=== PATIENT | female | born 2000 | race Caucasian/White ===

== ENCOUNTER 2022-01-01 14:44 | Emergency (ER) | payer OTHER ==
[~2022-01-01] VITALS: Ht 160 cm; Wt 81.2 kg
[~2022-01-01 14:44] MED LIST: ACETAMINOPHEN500 MG PO; AUGMENTIN 875-1 EACH PO; CITALOPRAM HBR10 MG PO; HYDROCODON-ACE1 EA10 PO; IBUPROFEN600 MG PO; MINIPRESS1 MG PO; NORCO 5-325 TA1 EACH PO
--- OUTSIDE RECORDS SUMMARY | 2022-01-01 14:46 | XMS ---
PreManage Notification: DUKE RENEE Security [employer] Events No recent Security Events currently on file CRITERIA MET - [facility] - 2 Visits in 30 Days CARE PROVIDERS ROSENDA YBARRA Physician Bowling Alley Operator: Medical Current PHONE: Unknown Reyna has no Care Guidelines for this patient. EAvelina VISIT COUNT (12 MO.) [address] TOTAL 6 NOTE: Visits indicate total known visits. ED/UCC VISIT TRACKING (12 MO.) 01/01/2022 14:45 [facility] TYPE: Emergency COMPLAINT: - ABDOMINAL PAIN, VAGINAL BLEEDING 12/18/2021 05:21 [facility] TYPE: Emergency DIAGNOSES: - abd pain vomiting - Left upper quadrant pain 12/17/2021 05:40 [facility] TYPE: Emergency DIAGNOSES: - Urinary tract infection, site not specified - ABD PAIN 04/01/2021 13:44 [facility] TYPE: Emergency DIAGNOSES: - Other chronic pain - ABD PAIN - Unspecified abdominal pain 03/29/2021 20:01 [facility] TYPE: Emergency DIAGNOSES: - Constipation, unspecified - ABD PAIN 01/08/2021 22:09 [employer] [facility] TYPE: Emergency DIAGNOSES: - Cystitis, unspecified without hematuria - ABD PAIN HEADACHE INPATIENT VISIT TRACKING (12 MO.) No inpatient visits to display in this time frame [email or web address]
== END 2022-01-01 16:23 | disposition left against medical advice (07) ==
LOC: ED 14:44
DX: Z53.21 Procedure and treatment not carried out due to patient leaving prior to being seen by health care provider (principal)
CPT/HCPCS: 81001; 84703

== ENCOUNTER 2025-02-23 16:54 | Emergency (ER) | payer OTHER ==
[~2025-02-23] VITALS: Ht 160 cm; Wt 65.9 kg
[2025-02-23] MEDS ORDERED: NITROGLYCERIN 0.4 MG SUBL SL PRN (17:15)
[2025-02-23] MEDS ORDERED: ASPIRIN 81 MG CHEW PO ONE (17:15)
[2025-02-23 17:20] LABS: BASOPHILS 0.5 % (0-2); EOSINOPHILS 0.8 % (0-6); HEMATOCRIT 41.9 % (35.0-50.0); HEMOGLOBIN 14.5 g/dL (12.0-18.0); LYMPHOCYTES 21.8 % (24-44); MCH 31.5 (27-36); MCHC 34.5 g/dl (30-36); MCV 91.4 fl (81-99); MONOCYTES 7.2 % (0-12); NEUTROPHILS 69.7 % (39-80); PLATELET COUNT 207 K/uL (140-440); RBC 4.58 M/ul (4.3-5.7); RDW 13.5 (10.5-15.0)
[2025-02-23 17:40] LABS: ALBUMIN 4.4 g/dL (3.4-5.0); ALBUMIN/GLOBULIN RATIO 1.33 (1.1-2.4); ANION GAP 13.8 (7-21); BILIRUBIN, TOTAL 0.6 mg/dL (0.2-1.0); BUN/CREATININE RATIO 9.21 (6.0-28.6); CALCIUM 8.5 mg/dL (8.5-10.1); CREATININE, SERUM 0.76 mg/dL (0.55-1.02); MAGNESIUM 2.1 mg/dL (1.8-2.4); POTASSIUM 3.8 mmol/L (3.5-5.1); PROTEIN, TOTAL 7.7 g/dL (6.4-8.2)
[2025-02-23] MEDS ORDERED: CYCLOBENZAPRINE10 MG PO (20:16)
[2025-02-23] MEDS ORDERED: CYCLOBENZAPRINE HCL 10 MG HOME.PACK PO ONE (20:30)
[2025-02-23 20:51] VITALS: BP 126/79
--- NOTE | 2025-02-23 21:47 | EKG ---
[facility] [address] [facility] [place] [address] Signed Sinus bradycardia Ventricular pre-excitation, WPW pattern type B Abnormal ECG No previous ECGs available Confirmed by Darius Sifuentes MD () on 02/23/2025 9:47:09 PM Electronically Signed By: DARIUS SIFUENTES MD 02/23/25 2147 PATIENT NAME: VÍCTORDUKE Danielito Electrocardiogram DATE OF : 4 PHYSICIAN: DARIUS SIFUENTES MD REPORT #: [id number] REPORT IS CONFIDENTIAL AND NOT TO BE RELEASED WITHOUT AUTHORIZATION
== END 2025-02-23 20:51 | disposition home or self-care (01) ==
LOC: ED 16:54
PROVIDERS: Emergency Medicine
DX: I45.6 Pre-excitation syndrome (principal)
CPT/HCPCS: 36415; 71045; 80053; 83735; 84484; 85025; 93005; 93010; 99285-25; A9270

== ENCOUNTER 2025-04-09 04:28 | Emergency (ER) | payer OTHER ==
[~2025-04-09] VITALS: Ht 160 cm; Wt 63.4 kg
[~2025-04-09 04:28] MED LIST changes: +CYCLOBENZAPRINE10 MG PO
[2025-04-09] MEDS ORDERED: LORazepam 0.5 MG TAB PO ONE (04:45)
[2025-04-09 04:46] LABS: BILIRUBIN, URINE NEGATIVE (negative); BLOOD/HGB, URINE NEGATIVE (Negative); KETONE, URINE NEGATIVE (Negative); LEUK ESTERASE, URINE NEGATIVE (negative); NITRITE, URINE NEGATIVE (negative)
[2025-04-09 05:13] VITALS: BP 111/74
[2025-04-09] MEDS ORDERED: LORazepam 1 MG HOME.PACK PO ONE (05:15)
--- NOTE | 2025-04-09 22:25 | EKG ---
[facility] [address] [facility] [place] [address] Signed Normal sinus rhythm Rlpno-Sogxfoxsx-Pdsbb Abnormal ECG When compared with ECG of 23-FEB-2025 16:57, No significant change was found Confirmed by Darius Sifuentes MD () on 04/09/2025 10:24:55 PM Electronically Signed By: DARIUS SIFUENTES MD 04/09/252224 PATIENT NAME: DUKE RENEE Electrocardiogram DATE OF : 4 PHYSICIAN: DARIUS SIFUENTES MD REPORT #: [id number] REPORT IS CONFIDENTIAL AND NOT TO BE RELEASED WITHOUT AUTHORIZATION
== END 2025-04-09 05:14 | disposition home or self-care (01) ==
LOC: ED 04:28
PROVIDERS: Family Medicine
DX: I45.6 Pre-excitation syndrome (principal); F43.9 Reaction to severe stress, unspecified; Z79.899 Other long term (current) drug therapy
CPT/HCPCS: 81003; 93005; 93010; 99285

== ENCOUNTER 2025-07-10 20:45 | Emergency (ER) | payer OTHER ==
[~2025-07-10] VITALS: Ht 160 cm; Wt 63.4 kg
[2025-07-10 21:19] LABS: BLOOD/HGB, URINE LARGE (Negative); KETONE, URINE NEGATIVE (Negative); LEUK ESTERASE, URINE NEGATIVE (negative); NITRITE, URINE NEGATIVE (negative)
[2025-07-10 21:26] LABS: BACTERIA, URINE NONE SEEN /hpf (negative); CASTS, URINE NONE SEEN \\lpf; CRYSTALS, URINE AMORPHOUS PHOSPH 2+ (0-1+); EPITHELIAL CELLS, URINE SQUAMOUS 1+ /lpf (0-1+); REFLEX CULTURE, URINE No (No)
[2025-07-10] MEDS ORDERED: LACTATED RINGER'S 1,000 ML IV ONE (22:45)
[2025-07-10] MEDS ORDERED: KETOROLAC TROMETHAMINE 30 MG/ML VIAL IV ONE (22:45)
[2025-07-10 23:39] LABS: BASOPHILS 0.4 % (0.1-1.2); EOSINOPHILS 1.1 % (0.7-5.8); LYMPHOCYTES 27.5 % (19.3-51.7); MCH 31.8 PG (25.6-32.2); MCHC 33.9 g/dL (32.2-35.5); MCV 93.9 fL (79.4-94.8); MONOCYTES 6.6 % (4.7-12.5); NEUTROPHILS 64.0 % (34.0-71.1); RBC 4.40 M/uL (3.93-5.22)
[2025-07-10 23:54] LABS: ALT (SGPT) 21.0 U/L (14-59); AST (SGOT) 21.0 U/L (15-37); GLOMERULAR FILTRATION RATE,EST 130.0 mL/min (>60); PROTEIN, TOTAL 6.9 g/dL (6.4-8.2); UREA NITROGEN 9.0 mg/dL (7-18)
[2025-07-11 01:00] VITALS: BP 112/72
== END 2025-07-11 01:02 | disposition home or self-care (01) ==
LOC: ED 20:45
PROVIDERS: Internal Medicine
DX: N94.6 Dysmenorrhea, unspecified (principal)
CPT/HCPCS: 36415; 76830; 76856; 80053; 81001; 84703; 85025; 96374; 99284-25; J1885; J7121

== ENCOUNTER 2025-09-22 01:13 | Emergency (ER) | payer OTHER ==
[~2025-09-22] VITALS: Ht 160 cm; Wt 66.4 kg
[2025-09-22] MEDS ORDERED: CHLORPROMAZINE100 MG PO (01:36)
[2025-09-22] MEDS ORDERED: LAMOTRIGINE200 MG PO (01:37)
[2025-09-22] MEDS ORDERED: TRAZODONE HCL100 MG PO (01:37)
[2025-09-22 01:42] LABS: BASOPHILS 0.4 % (0.1-1.2); EOSINOPHILS 1.0 % (0.7-5.8); LYMPHOCYTES 21.3 % (19.3-51.7); MCH 31.6 PG (25.6-32.2); MCHC 34.2 g/dL (32.2-35.5); MCV 92.4 fL (79.4-94.8); MONOCYTES 6.6 % (4.7-12.5); NEUTROPHILS 70.5 % (34.0-71.1); RBC 4.21 M/uL (3.93-5.22)
[2025-09-22] MEDS ORDERED: SODIUM CHLORIDE 0.9% 500 ML IV ONE (01:45)
[2025-09-22 01:59] LABS: ALT (SGPT) 50.0 U/L (14-59); AST (SGOT) 38.0 U/L (15-37); GLOMERULAR FILTRATION RATE,EST 127.0 mL/min (>60); PROTEIN, TOTAL 7.0 g/dL (6.4-8.2); UREA NITROGEN 6.0 mg/dL (7-18)
[2025-09-22 02:41] LABS: BLOOD/HGB, URINE NEGATIVE (Negative); KETONE, URINE NEGATIVE (Negative); LEUK ESTERASE, URINE NEGATIVE (negative); NITRITE, URINE NEGATIVE (negative)
[2025-09-22 04:50] LABS: AMPHETAMINES, URINE NEGATIVE (NEGATIVE); BARBITURATES, URINE NEGATIVE (NEGATIVE); BENZODIAZEPINE, URINE NEGATIVE (NEGATIVE); CANNABINOID, URINE POSITIVE (NEGATIVE); COCAINE, URINE NEGATIVE (NEGATIVE); ECSTASY, URINE NEGATIVE (NEGATIVE); FENTANYL, URINE NEGATIVE (NEGATIVE); METHADONE, URINE NEGATIVE (NEGATIVE); OPIATES, URINE NEGATIVE (NEGATIVE); OXYCODONE, URINE NEGATIVE (NEGATIVE); PHENCYCLIDINE, URINE NEGATIVE (NEGATIVE)
[2025-09-22] MEDS ORDERED: ONDANSETRON ODT4 MG PO (05:45)
[2025-09-22] MEDS ORDERED: ONDANSETRON 4 MG HOME.PACK SL ONE (05:45)
[2025-09-22 05:57] VITALS: BP 121/81
== END 2025-09-22 05:58 | disposition home or self-care (01) ==
LOC: ED 01:13
PROVIDERS: Internal Medicine
DX: R11.2 Nausea with vomiting, unspecified (principal)
CPT/HCPCS: 36415; 74176; 76830; 76856; 80053; 80307; 81003; 83690; 83735; 84703; 85025; 96374; 99284-25; A9270; J2405; J7040